=== PATIENT | male | born 1985 | race Caucasian/White ===

== ENCOUNTER 2024-04-14 13:00 | Emergency (ER) | payer MEDICARE, SELFPAY ==
--- NOTE | ~2024-04-14 | CT_ITS ---
EXAMINATION: CT ABDOMEN AND PELVIS WITHOUT CONTRAST CLINICAL INFORMATION: Left-sided flank pain COMPARISON: None available. TECHNIQUE: Multidetector volumetric imaging was performed from the superior aspect of the liver through the pubic symphysis. Sagittal and coronal reformatted images were obtained on the technologist's workstation. This CT examination was performed using dose optimization techniques as appropriate, variously including the following: *Automated exposure control *Adjustment of mA and/or kV according to patient size (this includes techniques or standardized protocols for targeted exams where dose is matched to indication/reason for exam; i.e. extremities or head) *Use of iterative reconstruction technique DLP: 306 mGy-cm FINDINGS: LUNG BASES: The visualized lung bases are unremarkable. LIVER, GALLBLADDER, AND BILIARY TREE: The liver is normal enlarged at 18 cm with normal attenuation and shape. No focal hepatic lesion or biliary ductal dilatation is present. The gallbladder is unremarkable with no evidence of radiopaque gallstones, gallbladder wall thickening, or obvious pericholecystic inflammatory changes. PANCREAS: Unremarkable. SPLEEN: Unremarkable. ADRENAL GLANDS: Unremarkable. KIDNEYS AND URETERS: The kidneys are normal in size, shape, and attenuation. Of 3 right-sided nonobstructing renal calculi are seen the largest measuring 4 mm and 840 Hounsfield units which is 5.5 cm from the posterior axillary line No hydronephrosis, hydroureter, or left-sided or ureteral calculi seen. No perinephric stranding. BLADDER: Unremarkable. GASTROINTESTINAL TRACT: There are colonic diverticula without diverticulitis The small and large bowel are otherwise unremarkable. The appendix is unremarkable. ABDOMINAL WALL: No significant hernia is appreciated. LYMPH NODES: Normal. VASCULAR: Unremarkable. PELVIC VISCERA: Mild BPH. Seminal vesicles normal. OSSEOUS STRUCTURES: Unremarkable. CT/CT abdomen pelvis wo IV con IMPRESSION: 1. A cause for the patient's left-sided flank pain has not been found. 2. Incidental note made of nonobstructing right-sided renal calculi, mild BPH and colonic diverticulosis without diverticulitis. Fleischner guidelines were followed. Electronically signed by: Michael Wilson MD 04/14/2024 06:33 PM [facility]
[2024-04-14 13:39] VITALS: BP 132/62; PULSE 84; RESP 18; TEMP 36.7; O2SAT 98; BMI 20.2
--- NOTE | 2024-04-14 13:46 | ED.BACK ---
HPI - Back Pain/Injury General Chief Complaint: Back Pain/Injury Stated Complaint: abd pain Time Seen by Provider: 04/14/24 14:03 Source: patient Mode of arrival: ambulatory Limitations: no limitations History of Present Illness ED Provider: [place] VALENTIN Narrative: Patient is a 38-year-old male presenting to the emergency department with complaint of left-sided flank pain for the past week. States pain is worse with movement and worse with getting up from a supine position. Denies any nausea, vomiting, fevers. Denies any dysuria, frequency, hematuria or other urinary symptoms. 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 Denies prior history of kidney stones. Has taken Tylenol with little relief. Pain radiates around side slightly. Denies radiation of pain to lower extremities. Denies saddle anesthesia or bowel/bladder incontinence. MD elicited complaint: back pain Onset (ago): week(s) Timing: constant Similar Symptoms Previously: No Quality: aching Location: left flank Radiation: abdomen Exacerbating factors: movement Relieving factors: none Associated symptoms: denies other symptoms Treatments prior to arrival: acetaminophen Work related injury: No Related Data Previous Rx's ?Medication ?Instructions ?Recorded cyclobenzaprine 10 mg tablet 10 mg PO TID PRN muscle spasm #10 04/14/24 tabs lidocaine 5 % topical patch 1 patch topical DAILY #15 ea 04/14/24 Allergies Allergy/AdvReac Type Severity Reaction Status Date / Time No Known Allergies Allergy Verified 04/14/24 13:44 Review of Systems Review of Systems: As per HPI. Yes all other systems are reviewed and are negative Constitutional: Constitutional: Reports as per HPI [facility] Social History Social History Advance Directives: No Advance Directives Information Provided: Yes Do you have a plan to hurt others: No Plan Physical Exam Vital Signs: Vital Signs: Last Vital Signs Temp 98 F 04/14/24 18:46 Pulse 63 04/14/24 18:46 Resp 19 04/14/24 18:46 BP 126/80 04/14/24 18:46 Pulse Ox 100 04/14/24 18:46 O2 Del Method Room Air 04/14/24 18:46 BMI result Body Mass Index 20.2 Vital signs have been reviewed and appear to be correct. Blood pressure normal. Heart rate normal. Respiratory rate normal. Temperature normal. Oxygen saturation normal. Const: General: cooperative, healthy appearing and no acute distress Orientation/consciousness: oriented to person, oriented to place, oriented to time and patient oriented x3 Limitations: no limitations HEENT: Head: Yes normocephalic and Yes atraumatic Ears: external ears normal General nose exam: Normal external nose present Face and sinus: Yes face symmetric Mouth: oropharynx normal and moist mucous membranes Throat: Yes uvula midline Eyes: Pupils: Equal, round and reactive pupils present Neck: Neck: Yes normal visual inspection and Yes supple Resp: Effort & Inspection: normal respiratory effort and able to speak in complete sentences Auscultation: clear to auscultation bilaterally Cardio: Rate: regular rate Rhythm: regular rhythm Heart sounds: S1 normal heart sound present and S2 normal heart sound present GI: Palpation (GI): Soft to palpation and nontender Auscultation: normoactive bowel sounds : General: Yes no CVA tenderness Back/Spine/Pelvis: Back: no CVA tenderness Thoracic/Lumbar Spine: thoracic and lumbar spine normal to inspection, thoraco-lumbar ROM normal, pain with thoraco-lumbar ROM, paraspinal muscle tenderness on the left in the lower thoracic, No thoracic spinal tenderness and No lumbar spinal tenderness Skin: General skin exam: elasticity normal and turgor normal Neuro: General: oriented to person, oriented to place, oriented to time, patient oriented x3, moves all extremities, no focal motor deficits and CN's II-XI intact bilaterally Cranial nerves: Yes Equal, round and reactive pupils present Cognition (Neuro): normal cognition Extrem: General: Yes full ROM, Yes no pedal edema and Yes no calf tenderness Psych: Mental Status: mental status grossly normal Affect: normal affect Thought process: Normal thought process present Course Course Course Narrative: This is a rapid medical exam performed by Anabela Sy PA-C. Patient is a 38-year-old male who comes in with left flank pain over the past several days. Pain over left mid flank radiates around anteriorly, becomes severe at times. Positive CVA tenderness on the left, no rash within this region, no other deformity. We will screen basic labs urinalysis and obtain a CT scan. Patient is hemodynamically stable and able to return to the weight room pending his full medical assessment. We will give a dose of Toradol. Medications Administered Discontinued Medications Generic Name Dose Route Start Last Admin Trade Name Freq PRN Reason Stop Dose Admin Ketorolac Tromethamine 15 mg 04/14/24 13:45 04/14/24 14:01 Ketorolac Tromethamine 15 Mg/Ml Vial IM 04/14/24 13:46 15 mg ONCE ONE Administration Medical Decision Making Medical Decision Making [facility] [place] Narrative: Patient is a 38-year-old male presenting to the emergency department with complaint of left-sided flank pain for the past week. On exam patient is awake, A+Ox3, VS WNL, afebrile, normal neurological exam without focal deficits, physical exam findings as above. Given reported symptoms and physical exam findings, initial differential includes renal/ureteral calculi, UTI/pyelonephritis, muscle strain. Labs notable for slight anemia, no leukocytosis. Urinalysis is without evidence of infection. CT notable for no evidence of obstructing calculi or hydronephrosis. My interpretation is in agreement with the radiologist's interpretation. Results discussed with patient and all questions answered. Will treat for muscle strain with cyclobenzaprine and topical lidocaine patches, also advised patient to take warm baths with Epsom salt. Follow up with PCP. Return precautions discussed at bedside. Patient verbalized understanding of and agreement with plan. Differential Diagnosis Differential Diagnoses: The differential diagnosis associated with the presentation includes As per [facility] [place] Admission/Observation Consideration of admission/observation: Escalation of care including admission/observation considered Patient would have been admitted to the hospital had their work up had any findings where hospital admission was appropriate and their clinical presentation warranted hospital admission. Lab Data [facility] [place] Lab Attestation statement: I reviewed the patient's lab results. as per [facility] 04/14/24 14:46 04/14/24 14:46 Labs: Lab Results 04/14/24 04/14/24 Range/Units 14:46 15:04 WBC 7.4 (4.8-10.8) X10*3/uL RBC 6.08 H (4.60-5.80) X10*6/uL Hgb 12.0 L (14.0-18.0) g/dl Hct 38.4 L (42.0-52.0) % MCV 63.2 L (80.0-98.0) fL MCH 19.7 L (27.0-33.0) pg MCHC 31.3 (31.0-36.0) g/dl RDW 18.4 H (11.0-16.0) % Plt Count 191 (160-400) X10*3/uL MPV Not Reportable Immature Gran % (Auto) Cancelled Neut % (Auto) Cancelled Lymph % (Auto) Cancelled Green % (Auto) Cancelled Eos % (Auto) Cancelled Baso % (Auto) Cancelled Lymph # (Auto) Cancelled Green # (Auto) Cancelled Eos # (Auto) Cancelled Baso # (Auto) Cancelled Abs Immat Gran (auto) Cancelled Absolute Neuts (auto) Cancelled Absolute Nucleated RBC 0.000 (0.0-0.012) X10*3/uL Nucleated RBC % (auto) 0.0 (0.0-0.2) /100WBC Neutrophils % (Manual) 62 (45-73) % Band Neutrophils % 1 L (3-5) % Lymphocytes % (Manual) 30 (20-40) % Atypical Lymphs % (Man) 2 (0-6) % Monocytes % (Manual) 5 (2-11) % Abs Neuts (Manual) 4.7 (2.0-8.3) X10*3/uL Lymphocytes # (Manual) 2.2 (1.2-4.9) X10*3/uL Atyp Lymphs # (Manual) 0.1 x10*3/uL Monocytes # (Manual) 0.4 (0.1-1.2) X10*3/uL Platelet Estimate NORMAL (NORMAL) Large Platelets PRESENT Plt Morphology Comment NOTED RBC Morphology NOTED Basophilic Stippling 1+ (0-2) /OIF Microcytosis 1+ (5-14) /OIF Target Cells 1+ (5-14) /OIF Tear Drop Cells 1+ (0-2) /OIF Acanthocytes (Spur) 1+ (0-2) /OIF Sodium 140 (135-145) mmol/L Potassium 4.0 (3.3-5.1) mmol/L Chloride 106 (96-108) mmol/L Carbon Dioxide 28 (22-29) mmol/L Anion Gap 10 L (12-20) BUN 11 (9-16) mg/dL Creatinine 0.88 (0.5-1.4) mg/dL Estim Creat Clear Calc 92.1 Estimated GFR > 60 Random Glucose 86 (60-115) mg/dL Calcium 9.2 (8.4-10.2) mg/dL Magnesium 2.2 (1.6-2.6) mg/dL Total Bilirubin 1.1 H (0.0-1.0) mg/dL AST 41 H (5-37) U/L ALT 19 (0-40) U/L Alkaline Phosphatase 54 (39-117) U/L Total Protein 7.4 (6.5-8.0) g/dL Albumin 4.5 (3.5-5.0) g/dL Urine Color Yellow Urine Appearance Clear Urine pH 7.0 (5.0-9.0) Ur Specific [place] 1.025 (1.005-1.025) Urine Protein Negative (Neg-Trace) mg/dL Urine Glucose (UA) Negative (Negative) mg/dL Urine Ketones Negative (Negative) mg/dL Urine Blood Negative (Negative) Urine Nitrite Negative (Negative) Ur Leukocyte Esterase Negative (Negative) Independent Interpretation I performed an independent interpretation of an: CT Scan Interpretation: CT notable for no evidence of obstructing calculi or hydronephrosis. Radiology Impression Discussion of test interpretation with radiology: I have reviewed the radiologist's reading. Radiologist Impression: CT/CT abdomen pelvis wo IV con IMPRESSION: 1. A cause for the patient's left-sided flank pain has not been found. 2. Incidental note made of nonobstructing right-sided renal calculi, mild BPH and colonic diverticulosis without diverticulitis. External Record Review External record reviewed: Inpatient record, Office record and Outpatient record Prescription Management I considered prescription management with: Pain Medication and Other Discharge Plan Discharge Clinical Impression: Strain of lumbar region Patient Disposition: Home, Self-Care Instructions: Muscle Strain (DC), Low Back Strain (ED), Acute Low Back Pain (ED) Additional Instructions: You were evaluated in the emergency department today for back pain. Your evaluation did not show signs of medical conditions requiring emergent intervention at this time. We recommended that you use ibuprofen or Tylenol per package directions every 6 hours as needed for pain. If necessary, you can alternate these medications so that you take one medication every 3 hours. For instance, at noon take ibuprofen, then at 3:00 p.m. take Tylenol, then at 6:00 p.m. take ibuprofen. You have been prescribed a muscle relaxer which you may take every 8 hours as needed for spasms. You have been prescribed 5% topical lidocaine patches which you can wear for up to 12 hours in a 24 hour period. Do not apply heat directly over the patches. Please schedule an appointment for follow-up with your primary care physician this week for further evaluation of your symptoms. Return to the emergency department if you experience worsening back pain, difficulty walking, fevers, numbness, tingling, incontinence, groin numbness or tingling, or any other concerning symptoms. Prescriptions: New cyclobenzaprine 10 mg tablet 10 mg PO TID PRN (Reason: muscle spasm) Qty: 10 0RF lidocaine 5 % adhesive patch,medicated 1 patch topical DAILY Qty: 15 0RF Rx Instructions: leave on most painful area for up to 12 hrs Print Language: Kiswahili
[2024-04-14] MEDS: Ketorolac Tromethamine 15 MG/ML VIAL IM (14:01)
[2024-04-14 14:54] LABS: Hematocrit 38.4 % (42.0-52.0); Mean Corpuscular HGB Conc 31.3 g/dl (31.0-36.0); Mean Corpuscular Hemoglobin 19.7 pg (27.0-33.0); Mean Corpuscular Volume 63.2 fL (80.0-98.0); Platelet Count 191 X10*3/uL (160-400); Red Blood Count 6.08 X10*6/uL (4.60-5.80); Red Cell Distribution Width 18.4 % (11.0-16.0)
[2024-04-14 14:55] LABS: WBC ABN SCTR FOR CBC 1
[2024-04-14 15:07] LABS: Alanine Aminotransferase 19 U/L (0-40); Albumin Level 4.5 g/dL (3.5-5.0); Alkaline Phosphatase 54 U/L (39-117); Anion Gap 10 (12-20); Aspartate Amino Transferase 41 U/L (5-37); Bilirubin Total 1.1 mg/dL (0.0-1.0); Blood Urea Nitrogen 11 mg/dL (9-16); Calcium 9.2 mg/dL (8.4-10.2); Carbon Dioxide 28 mmol/L (22-29); Chloride 106 mmol/L (96-108); Creatinine Clr Calc Pharmacy 92.1; Estimated Glomerular Filt Rate > 60; Glucose Random 86 mg/dL (60-115); Magnesium 2.2 mg/dL (1.6-2.6); Sodium 140 mmol/L (135-145); Total Protein 7.4 g/dL (6.5-8.0)
[2024-04-14 15:14] LABS: Appearance Urine Clear; Color Urine Yellow; Glucose Urine UA Negative (Negative); Leukocyte Esterase Urine Negative (Negative); Nitrite Urine Negative (Negative); Specific Gravity - Urine 1.025 (1.005-1.025); Urine Blood Negative (Negative); Urine Ketones Negative (Negative); Urine Protein Negative (Neg-Trace)
[2024-04-14 15:15] LABS: Atypical Lymphs Percent Manual 2 % (0-6); Band Neutrophils Percent 1 % (3-5); Lymphocytes Percent Manual 30 % (20-40); Microcytosis 1+ (5-14) /OIF; Monocytes Percent Manual 5 % (2-11); Neutrophils Percent Manual 62 % (45-73); RBC Morphology NOTED
[2024-04-14 15:20] LABS: Acanthocytes 1+ (0-2) /OIF; Basophilic Stippling 1+ (0-2) /OIF; Target Cells 1+ (5-14) /OIF; Tear Drop Cells 1+ (0-2) /OIF
[2024-04-14 15:21] LABS: Large Platelet PRESENT; Platelet Estimate NORMAL (NORMAL); Platelet Morphology Comment NOTED
[2024-04-14 15:22] VITALS: BP 134/66; PULSE 72; RESP 19; TEMP 36.9; O2SAT 98
[2024-04-14 15:22] LABS: Atypical Lymph Absolute Manual 0.1 x10*3/uL; Lymphocytes Absolute Manual 2.2 X10*3/uL (1.2-4.9); Monocytes Absolute Manual 0.4 X10*3/uL (0.1-1.2); Neutrophils Absolute Manual 4.7 X10*3/uL (2.0-8.3); White Blood Count 7.4 X10*3/uL (4.8-10.8)
[2024-04-14 18:46] VITALS: BP 126/80; PULSE 63; RESP 19; TEMP 36.6; O2SAT 100
[2024-04-14 18:58] VITALS: BP 126/80; PULSE 63; RESP 19; TEMP 36.6; O2SAT 100
== END 2024-04-14 18:58 | disposition home or self-care (01) ==
PROVIDERS: Physician Assistant Medical; Emergency Provider Emergency Medicine
DX: S39.012A Strain of muscle, fascia and tendon of lower back, initial encounter (principal); R10.2 Pelvic and perineal pain; X58.XXXA Exposure to other specified factors, initial encounter; Y93.89 Activity, other specified; Y92.89 Other specified places as the place of occurrence of the external cause; Y99.8 Other external cause status; Z79.899 Other long term (current) drug therapy
CPT/HCPCS: 36415; 74176; 80053; 81003; 83735; 85007; 85027; 96372; 99283; 99284; J1885

== ENCOUNTER 2024-11-11 12:58 | Outpatient (REF) | payer MEDICARE, OTHER, SELFPAY ==
[2024-11-11 14:53] LABS: Appearance Urine Clear; Glucose Urine UA Negative (Negative); PH 5.5 (5.0-9.0); Specific Gravity - Urine >= 1.030 (1.005-1.025); UMIC TRIGGER UACC YES
[2024-11-11 15:14] LABS: Hematocrit 36.7 % (42.0-52.0); Hemoglobin 11.0 g/dl (14.0-18.0); Imm Gran Abs Auto 0.05 X10*3/uL (0.00-0.03); Imm Gran Pct Auto 0.5 % (0.0-0.4); Lymphocytes Absolute Auto 2.8 X10*3/uL (1.2-4.9); MANUAL DIFF FLAG SCAN; Mean Corpuscular HGB Conc 30.0 g/dl (31.0-36.0); Mean Corpuscular Hemoglobin 19.2 pg (27.0-33.0); NRBC Abs Auto 0.000 X10*3/uL (0.0-0.012); NRBC Pct Auto 0.0 /100WBC (0.0-0.2); PLT CLUMP 1; Red Blood Count 5.74 X10*6/uL (4.60-5.80); SCAN SMEAR FLAG 1
[2024-11-11 15:16] LABS: Mean Corpuscular Volume 63.9 fL (80.0-98.0); White Blood Count 9.7 X10*3/uL (4.8-10.8)
[2024-11-11 15:38] LABS: Platelet Count 244 X10*3/uL (160-400)
[2024-11-11 17:56] LABS: CT PCR Urine NOT DETECTED (Not Detect.); NG PCR Urine NOT DETECTED (Not Detect.)
[2024-11-12 08:39] LABS: Syphilis Screen Reactive (Nonreactive)
[2024-11-20 15:36] LABS: T.Pallidum Particle Agg Test Reactive (Nonreactive)
== END 2024-11-11 12:59 | disposition home or self-care (01) ==
LOC: HO.LAB 12:58
DX: Z76.89 Persons encountering health services in other specified circumstances (principal); M25.512 Pain in left shoulder; G89.29 Other chronic pain; H53.8 Other visual disturbances; R10.13 Epigastric pain; R51.9 Headache, unspecified; Z13.31 Encounter for screening for depression; Z13.39 Encounter for screening examination for other mental health and behavioral disorders
CPT/HCPCS: 36415; 81001; 85025; 86592; 86780; 87491; 87591; 96127; 99202

== ENCOUNTER 2024-11-11 12:58 | Outpatient (AMB) | payer MEDICARE, OTHER, SELFPAY ==
[2024-11-11 13:00] VITALS: BP 132/84; PULSE 96; RESP 18; TEMP 36.2; O2SAT 98; BMI 20.4
--- NOTE | 2024-11-11 13:00 | MHC.PC.OV ---
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 Allergies No Known Allergies Allergy (Verified 11/11/24 13:13) Medication List - Last Reconciled 11/11/24 by BEAN Wagner No Known Home Meds Tobacco use date assessed: 11/11/24 Dental Screening Dental Screen Date: 11/11/24 Did you have a dental visit in the last 12 months?: No Did you have a dental problem in the last 6 months where you did not have access to dental care?: No Was dental information given to patient?: Patient declined 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 The musculoskeletal pain has been persistent for almost a year, primarily affecting the shoulder and neck region, with episodes of severe pain leading to emergency room visits. Initial investigations, including X-rays and blood work, did not reveal any specific cause, and the pain persists, exacerbated by certain positions and activities. The patient has sought residential care officer, which provided temporary relief, and is considering physical therapy for more sustained improvement. The patient has a history of asthma, which required inhaler use approximately ten years ago, but he no longer uses it. He also reports a diagnosis of anemia, though details are sparse. Additionally, the patient experiences intermittent abdominal pain, occurring about once a week, and finds some relief with marijuana use. He denies any specific food triggers and reports the pain is generally epigastric in location. The patient occasionally experiences mild headaches and blurred vision, with a history of a scratched cornea from an eye injury ten years ago. He has not had a recent eye examination. A past medical history of kidney stones was noted, though it was not the primary concern during this visit. 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 1. Little interest or pleasure in doing things: not at all 2. Feeling down, depressed, or hopeless: not at all 3. Trouble falling or staying asleep, or sleeping too much: not at all 4. Feeling tired or having little energy: not at all 5. Poor appetite or overeating: not at all 6. Feeling bad about yourself - or that you are a failure or have let yourself or your family down: not at all 7. Trouble concentrating on things, such as reading the newspaper or watching television: not at all 8. Moving or speaking so slowly that other people could have noticed. Or the opposite - being so fidgety or restless that you have been moving around a lot more than usual: not at all 9. Thoughts that you would be better off or of hurting yourself in some way: not at all Total score: 0 Depression Screening Interpretation: Negative Depression Screening Done: Yes 82998 - PHQ-9 Billing: Yes Source: Developed by Drs. Len Payne, Malena Handy, Andreas Mims and colleagues, with an educational celina from [employer]. Thrive Questionnaire Date Thrive assessed: 11/11/24 I am a: Patient What is your living situation today?: I have a place to live, but I am worried about losing it in the future Within the past 12 months, did the food you bought not last and you didn't have the money to get more?: Often true Within the past 12 months, did you worry whether your food would run out before you got money to buy more?: Sometimes True Do you have trouble paying for medicines?: No Do you have trouble getting transportation to medical appointments?: No Do you have trouble paying your heating and electricity bill?: No Do you have trouble taking care of your child, family member or friend?: No Do you have trouble with day-to-day activities such as bathing, preparing meals, shopping, managing finances, etc.?: No Are you currently unemployed and looking for a job?: No Are you interested in more education?: No Please select the resources that you would like help with: None Currently or been in a relationship where the following occur: No concerns reported THRIVE Score: 3 AUDIT C Alcohol Use Questionnaire (AUDIT-C) 1. How often do you have a drink containing alcohol?: Monthly or less 2. How many drinks containing alcohol do you have on a typical day when you are drinking?: 1 or 2 3. How often do you have six or more drinks on one occasion?: Never Total Score: 1 LIZA-7 AMB Questionnaire LIZA-7 Date LIZA - 7 assessed: 11/11/24 Feeling nervous, anxious, or on edge: 0 = Not at all Not being able to stop or control worryin = Not at all Worrying too much about different things: 0 = Not at all Trouble relaxin = Not at all Being so restless that it is hard to sit still: 0 = Not at all Becoming easily annoyed or irritable: 0 = Not at all Feeling afraid as if something awful might happen: 0 = Not at all Total LIZA-7 score (0-4 normal; 5-9 mild; 10-14 moderate; 15-21 severe): 0 Source: Developed by Drs. Len Payne, Malena Handy, Andreas Mims and colleagues, with an educational celina from [employer] LIZA-7 Assessment Billing LIZA-7 Assessment Tool: LIZA-7 Assessment 29869 Review of Systems Const Reports headache(s) (on and off-attributed to not drinking enough fluids) Eyes Reports blurry vision and Denies loss of vision ENT Denies vertigo, Denies dizziness, Reports headache(s) (on and off-attributed to not drinking enough fluids) and Denies sore throat Card Denies chest pain, Denies leg edema and Denies lightheadedness Resp Denies cough, Denies hemoptysis and Denies wheezing GI Reports abdominal pain (infrequent epigastric pain), Denies melena, Denies constipation, Denies diarrhea and Denies vomiting Denies dysuria, Denies urinary frequency and Denies urinary urgency Musc Reports arthralgias (left shoulder), Denies joint swelling, Denies numbness and Denies tingling Skin/Breast Denies lesions, Denies rash and Denies skin swelling Neuro Denies Abnormal speech present, Denies behavioral changes, Denies vertigo, Denies dizziness, Reports headache(s) (on and off-attributed to not drinking enough fluids), Denies loss of vision, Denies memory loss, Denies numbness and Denies tingling Psych Denies anxiety, Denies behavioral changes, Denies depression, Denies memory loss and Denies panic attacks Juan Francisco/Lymph Denies easy bleeding and Denies easy bruising Aller/Immun Denies wheezing Physical exam (Primary Care) Vital Signs: Last Vital Signs Temp 97.1 F 11/11/24 13:00 Pulse 96 11/11/24 13:00 Resp 18 11/11/24 13:00 BP 132/84 11/11/24 13:00 Pulse Ox 98 11/11/24 13:00 Oxygen Delivery Method Room Air 11/11/24 13:00 BMI result Body Mass Index 20.4 Tobacco/Smoking Status: Tobacco use Status Tobacco use date assessed 11/11/24 11/11/24 13:07 Patient Tobacco Use Status Never used Tobacco 11/11/24 13:07 e-Cigarette/Vaping Use Never Used 11/11/24 13:07 PHQ-9: PHQ-9 Score PHQ-9: Total score 0 11/11/24 13:21 Depression Screening Interpretation: Negative Thrive Assessment: Date of Thrive Assessment Date Thrive assessed 11/11/24 11/11/24 13:07 Currently or been in a relationship where the following occur: No concerns reported Const General: healthy appearing, no acute distress, alert and awake Nutritional Appearance: well nourished Orientation/consciousness: oriented to person, oriented to place and oriented to time HENMT Ears: TM's normal bilaterally General nose exam: Normal nasal mucous membranes and turbinates present Eyes Conjunctivae: conjunctivae normal Sclerae: sclerae normal Pupils: Equal, round and reactive pupils present Neck Neck: Yes no lymphadenopathy and Yes no JVD Thyroid: Thyroid normal Carotids: no bruits Resp Effort & Inspection: normal respiratory effort and not tachypneic Auscultation: no crackles, no rales, no rhonchi and no wheezes Cardio Rate: regular rate Rhythm: regular rhythm Heart sounds: no murmurs and normal S1 and S2 GI Palpation (GI): Soft to palpation, nontender, no hepatomegaly and no splenomegaly Auscultation: normal bowel sounds General: Yes no CVA tenderness Back/Spine/Pelvis Back: no CVA tenderness Cervical Spine: No Cervical spine tenderness Skin General skin exam: no rashes or lesions noted and dry skin Neuro General: oriented to person, oriented to place and oriented to time Cranial nerves: Yes Equal, round and reactive pupils present Speech: No Abnormal speech present Gait exam (Neuro): Normal gait present Motor exam (neuro): no tremor noted Extrem Right upper extremity: full ROM Left upper extremity: full ROM and shoulder/upper arm Details: tenderness (trapezium muscle) and normal ROM; no swelling, no crepitus and no deformity Right lower extremity: full ROM; no edema Left lower extremity: full ROM; no edema Psych Mental Status: mental status grossly normal Speech and movement: Normal speech and movement present Affect: normal affect Attitude: cooperative Thought process: Normal thought process present Coding Level of Care Code New Pt Level 3 (56906) Diagnoses Chronic left shoulder pain M25.512; G89.29 Chronicity: chronic Blurry vision H53.8 Epigastric abdominal pain R10.13 Generalized headaches R51.9 Additional Codes LIZA-7 Assessment Billing - LIZA-7 Assessment Tool: LIZA-7 Assessment 91391 ([id number]) PHQ-9 - 73251 - PHQ-9 Billing: Yes ([id number]) Time Spent (min) 37 Assessment & Plan Assessment & Plan (1) Left shoulder pain: Code(s): M25.512 - Pain in left shoulder Category: Medical Qualifiers: Chronicity: chronic Qualified Code(s): M25.512 - Pain in left shoulder; G89.29 - Other chronic pain Plan: Ongoing pain, reports waking up with the pain and thought maybe he slept wrong. The pain has not gone away since. He was evaluated in the emergency room with no significant findings. Reports having pain down his arm before, which resolved after he went to the chiropractor, he was also trying to see a neurologist, but was told that he needed a referral. Exam: The patient has mild pain over his trapezium muscle, with no limitation or weakness. Appears to be muscular in general. Cyclobenzaprine 10 mg at bedtime refilled. PT evaluation ordered (2) Blurry vision: Code(s): H53.8 - Other visual disturbances Category: Medical Plan: epic cupid analyst referral placed (3) Epigastric abdominal pain: Code(s): R10.13 - Epigastric pain Category: Medical Plan: Infrequent epigastric pain. Educated the patient on the foods avoid. Will continue monitor (4) Generalized headaches: Code(s): R51.9 - Headache, unspecified Category: Medical Plan: Encouraged adequate fluids hydration Plan Establishing care. Labs ordered, return in 9 weeks for physical Orders: Orders Lipid Panel 11/11/24 Z76.89 - Persons encountering health services in other specified circumstances Vitamin D 25-OH Total 11/11/24 Z76.89 - Persons encountering health services in other specified circumstances HIV Ab/Ag 11/11/24 Z76. - Persons encountering health services in other specified circumstances Syphilis Screen 11/11/24 Z76.89 - Persons encountering health services in other specified circumstances CT NG by PCR Urine 11/11/24 Z76. - Persons encountering health services in other specified circumstances Complete Blood Count Auto Diff 11/11/24 Z76.89 - Persons encountering health services in other specified circumstances Comprehensive [place]. Panel Fast 11/11/24 Z76.89 - Persons encountering health services in other specified circumstances TSH reflex Free T4 11/11/24 Z. - Persons encountering health services in other specified circumstances UA CC w/rflx Micro + Cult 11/11/24 Z. - Persons encountering health services in other specified circumstances PT Evaluation and Treatment Today G89.29 - Other chronic pain, M25.512 - Pain in left shoulder Referrals Ophthalmology Referral H53.8 - Other visual disturbances Medications: New cyclobenzaprine 10 mg PO BEDTIME PRN 30 tabs 2RF muscle spasm Discontinued cyclobenzaprine Discontinued Reason: Patient no longer taking 10 mg PO TID PRN 10 tabs 0RF muscle spasm lidocaine 5% leave on most painful area for up to 12 hrs Discontinued Reason: Patient no longer taking 1 patch topical DAILY 15 ea 0RF
--- OUTSIDE RECORDS SUMMARY | 2024-11-11 13:32 | XMS_ITS | Clinical Summary ---
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 Name Role Phone Physician, No Pcp Primary Care Provider Unavaila ble Allergies No known active allergies Social History Tobacco Use Types Packs/Day Years Used Date Smoking Tobacco: Never Assessed Sex and Gender Information Value Date Recorded Sex Assigned at Male 07/09/2024 8:10 AM EST Legal Sex Male 2:55 AM EST Gender Identity Male 07/09/2024 8:10 AM EST Sexual Orientation Straight 07/09/2024 8: 10 AM EST Last Filed Vital Signs Vital Sign Reading Time Taken Comments Blood Pressure 117/75 07/09/2024 7:36 AM EST Pulse 56 07/09/2024 7:36 AM EST Temperature 36.6 C (97.9 F) 07/09/2024 7:36 AM EST Respiratory Rate 20 07/09/2024 7:36 AM EST Oxygen Saturation 98% 07/09/2024 7:36 AM EST Inhaled Oxygen Concentration - - Weight 56.7 kg (125 lb) 07/09/2024 3:01 AM EST Height 165.1 cm (5' 5 ) 07/09/2024 3:01 AM EST Body Mass Index 20.8 07/09/2024 3:01 AM EST Plan of Treatment Health Maintenance Due Date Last Done Comments DTaP,Tdap,and Td Vaccines (1 - Tdap) 2005 Hepatitis B Vaccines (1 of 3 - 19+ 3-dose series) 2005 COVID-19 Vaccine ( - 2023-2 5 season) 2024 Cholesterol Screening (Lipid Panel) 07/09/2024 Depression Screening 07/09/2024 HIV Screening 07/09/2024 Hepatitis C Screening 07/09/2024 Social Influencers of Health Screening 07/09/2024 Influenza Vaccine (Season Ended) 2025 HIB Vaccines Aged Out No longer eligi ble based on patient's age to complete this topic HPV Vaccines Aged Out No longer eligi ble based on patient's age to complete this topic Hepatitis A Vaccines Aged Out No long er eligible based on patient's age to complete this topic IPV Vaccines Aged Out No longer eligi ble based on patient's age to complete this topic MMR Vaccines Aged Out No longer eligi ble based on patient's age to complete this topic Meningococcal ACWY Vaccine Aged Out N o longer eligible based on patient's age to complete this topic Meningococcal B Vaccine Aged Out No l onger eligible based on patient's age to complete this topic Pneumococcal Vaccine: Pediat rics (0 to 5 Years) and At-Risk Patients (6 to 64 Years) Aged Out No longer eligible b ased on patient's age to complete this topic RSV Immunization Patients Un carlos 20 months Aged Out No longer eligible b ased on patient's age to complete this topic Varicella Vaccines Aged Out No longer eligible based on patient's age to complete this topic Insurance [facility] [address] [place] [address] Care Teams Grocery Store Manager Relationship Specialty Start Date End Date Physician, No Pcp PCP - General 07/09/24
== END 2024-11-11 13:49 | disposition home or self-care (01) ==
LOC: HO.HMCH 12:59
DX: M25.512 Pain in left shoulder (principal); G89.29 Other chronic pain; H53.8 Other visual disturbances; R10.13 Epigastric pain; R51.9 Headache, unspecified

== ENCOUNTER 2025-01-13 14:56 | Outpatient (AMB) | payer MEDICARE, SELFPAY ==
[2025-01-13 15:09] VITALS: BP 146/70; PULSE 111; RESP 18; TEMP 36.3; O2SAT 98; BMI 21.8
--- NOTE | 2025-01-13 15:09 | MHC.PC.OV ---
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: No Accompanied by: Self / Same As Patient Allergies No Known Allergies Allergy (Verified 01/13/25 15:17) Medication List - Last Reconciled 01/13/25 by BEAN Wagner No Known Home Meds Tobacco use date assessed: 01/13/25 Dental Screening Dental Screen Date: 01/13/25 Did you have a dental visit in the last 12 months?: No Did you have a dental problem in the last 6 months where you did not have access to dental care?: No Was dental information given to patient?: No HPI 9 weeks HPI Details This is presenting for an annual physical Dentist:Needs to make an appt Eye: He was referred to an manufacturing engineering manager but did not confirm appointment when they called him. He was given the number to reach out to them; he was complaining of blurry vision on his prior visit. Snellen: Right: Left: Corrected vision: no STI screening: completed Colonoscopy: n/a Pap Smer:n/a PHQ-9: Flu: He does not taken this regularly COVID: x2 Tdap: Reports that he is not sure when he had this, he will hold off for now. Diet: regular Exercise:Reports doing martial arts; verbalized that he is active. The patient is a 39-year-old male presenting with iron deficiency anemia and slightly elevated liver enzymes. The anemia was identified through blood work, and it is suspected to be due to iron deficiency. The patient has a history of being prescribed iron supplements, which were not effective, and he is advised to consume iron-rich foods like spinach. The patient also reports slightly elevated liver enzymes, which were noted during routine blood work. He consumes alcohol very rarely and does not use Tylenol frequently, which are common causes of liver enzyme elevation. The patient has a history of blurred vision and was scheduled for an eye doctor appointment, which he could not confirm. He is advised to reschedule the appointment to address this issue. The patient has a history of kidney stones, which were identified through imaging in April. He is advised to maintain hydration to prevent recurrence. 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 1. Little interest or pleasure in doing things: not at all 2. Feeling down, depressed, or hopeless: not at all 3. Trouble falling or staying asleep, or sleeping too much: not at all 4. Feeling tired or having little energy: not at all 5. Poor appetite or overeating: not at all 6. Feeling bad about yourself - or that you are a failure or have let yourself or your family down: not at all 7. Trouble concentrating on things, such as reading the newspaper or watching television: not at all 8. Moving or speaking so slowly that other people could have noticed. Or the opposite - being so fidgety or restless that you have been moving around a lot more than usual: not at all 9. Thoughts that you would be better off or of hurting yourself in some way: not at all Total score: 0 Depression Screening Interpretation: Negative Depression Screening Done: Yes Source: Developed by Drs. Len Payne, Malena Handy, Andreas Mims and colleagues, with an educational celina from [employer]. Thrive Questionnaire Date Thrive assessed: 01/13/25 I am a: Patient What is your living situation today?: I have a place to live, but I am worried about losing it in the future Within the past 12 months, did the food you bought not last and you didn't have the money to get more?: Often true Within the past 12 months, did you worry whether your food would run out before you got money to buy more?: Sometimes True Do you have trouble paying for medicines?: No Do you have trouble getting transportation to medical appointments?: No Do you have trouble paying your heating and electricity bill?: No Do you have trouble taking care of your child, family member or friend?: No Do you have trouble with day-to-day activities such as bathing, preparing meals, shopping, managing finances, etc.?: No Are you currently unemployed and looking for a job?: No Are you interested in more education?: No Please select the resources that you would like help with: None Currently or been in a relationship where the following occur: No concerns reported THRIVE Score: 3 AUDIT C Alcohol Use Questionnaire (AUDIT-C) 1. How often do you have a drink containing alcohol?: Monthly or less 2. How many drinks containing alcohol do you have on a typical day when you are drinking?: 1 or 2 3. How often do you have six or more drinks on one occasion?: Never Total Score: 1 LIZA-7 AMB Questionnaire LIZA-7 Date LIZA - 7 assessed: 01/13/25 Source: Developed by Drs. Len Payne, Malena Handy, Andreas Mims and colleagues, with an educational celina from [employer]. Review of Systems Const Denies headache(s) Eyes Reports blurry vision and Denies loss of vision ENT Denies vertigo, Denies dizziness, Denies headache(s) and Denies sore throat Card Denies chest pain, Denies leg edema and Denies lightheadedness Resp Denies cough, Denies hemoptysis and Denies wheezing GI Denies abdominal pain, Denies melena, Denies constipation, Denies diarrhea and Denies vomiting Denies dysuria, Denies urinary frequency and Denies urinary urgency Musc Denies arthralgias, Denies joint swelling, Denies numbness and Denies tingling Neuro Denies Abnormal speech present, Denies behavioral changes, Denies vertigo, Denies dizziness, Denies headache(s), Denies loss of vision, Denies memory loss, Denies numbness and Denies tingling Psych Denies anxiety, Denies behavioral changes, Denies depression, Denies memory loss and Denies panic attacks Juan Francisco/Lymph Denies easy bleeding and Denies easy bruising Aller/Immun Denies wheezing Physical exam (Primary Care) Vital Signs: Last Vital Signs Temp 97.3 F 01/13/25 15:09 Pulse 111 H 01/13/25 15:09 Resp 18 01/13/25 15:09 BP 134/82 01/13/25 15:26 Pulse Ox 98 01/13/25 15:09 Oxygen Delivery Method Room Air 01/13/25 15:09 BMI result Body Mass Index 21.8 Tobacco/Smoking Status: Tobacco use Status Tobacco use date assessed 01/13/25 01/13/25 15:15 Patient Tobacco Use Status Never used Tobacco 01/13/25 15:15 e-Cigarette/Vaping Use Never Used 01/13/25 15:15 PHQ-9: PHQ-9 Score PHQ-9: Total score 0 01/13/25 15:27 Depression Screening Interpretation: Negative Thrive Assessment: Date of Thrive Assessment Date Thrive assessed 01/13/25 01/13/25 15:15 Currently or been in a relationship where the following occur: No concerns reported Const General: healthy appearing, no acute distress, alert and awake Nutritional Appearance: well nourished Orientation/consciousness: oriented to person, oriented to place and oriented to time HENMT Ears: TM's normal bilaterally General nose exam: Normal nasal mucous membranes and turbinates present Eyes Conjunctivae: conjunctivae normal Sclerae: sclerae normal Pupils: Equal, round and reactive pupils present Neck Neck: Yes no lymphadenopathy and Yes no JVD Thyroid: Thyroid normal Carotids: no bruits Resp Effort & Inspection: normal respiratory effort and not tachypneic Auscultation: no crackles, no rales, no rhonchi and no wheezes Cardio Rate: regular rate Rhythm: regular rhythm Heart sounds: no murmurs and normal S1 and S2 GI Palpation (GI): Soft to palpation, nontender, no hepatomegaly and no splenomegaly Auscultation: normal bowel sounds General: Yes no CVA tenderness Back/Spine/Pelvis Back: no CVA tenderness Skin General skin exam: no rashes or lesions noted and dry skin Neuro General: oriented to person, oriented to place, oriented to time and CN's II-XI intact bilaterally Cranial nerves: Yes Equal, round and reactive pupils present Speech: No Abnormal speech present Gait exam (Neuro): Normal gait present Motor exam (neuro): no tremor noted Deep tendon reflexes (DTR's): Right triceps reflex intensity grade: 2+, Left triceps reflex intensity grade: 2+, Rt Biceps (C5, C6): 2+, Left biceps reflex intensity grade: 2+, Right brachioradialis reflex intensity grade: 2+, Left brachioradialis reflex intensity grade: 2+, Right patellar reflex intensity grade: 2+ and Left patellar reflex intensity grade: 2+ Extrem Right upper extremity: full ROM Left upper extremity: full ROM Right lower extremity: full ROM; no edema Left lower extremity: full ROM; no edema Psych Mental Status: mental status grossly normal Speech and movement: Normal speech and movement present Affect: normal affect Attitude: cooperative Thought process: Normal thought process present Coding Level of Care Code Est Pt Prev Care [id number]) Diagnoses Annual physical exam Z00.00 Blurry vision H53.8 Elevated AST (SGOT) R74.01 Anemia, unspecified type D64.9 Anemia type: unspecified type Chronic left shoulder pain M25.512; G89.29 Chronicity: chronic Generalized headaches R51.9 Epigastric abdominal pain R10.13 Syphilis A53.9 Time Spent (min) 39 Assessment & Plan Assessment & Plan (1) Annual physical exam: Code(s): Z00.00 - Encounter for general adult medical examination without abnormal findings Category: Medical Plan: Preventative guidelines and recent labs reviewed with the patient. The patient was given a number for the manufacturing engineering manager to call to confirm appointment. (2) Blurry vision: Code(s): H53.8 - Other visual disturbances Category: Medical Plan: Awaiting appointment (3) Elevated AST (SGOT): Code(s): R74.01 - Elevation of levels of liver transaminase levels Category: Medical Plan: AST slightly elevated at 41-limit alcohol/medication containing acetaminophen or Tylenol/high fat foods. We will recheck CMP in 4 months (4) Anemia: Code(s): D64.9 - Anemia, unspecified Category: Medical Qualifiers: Anemia type: unspecified type Qualified Code(s): D64.9 - Anemia, unspecified Plan: H&H 1136.7, MCV 63.9, MCH 19.2-indicating a microcytic hypochromic anemia. Encouraged the patient to increase iron in his diet. Reports that iron tablets has not worked for him in the past. We will continue to monitor CBC. (5) Left shoulder pain: Code(s): M25.512 - Pain in left shoulder Category: Medical Qualifiers: Chronicity: chronic Qualified Code(s): M25.512 - Pain in left shoulder; G89.29 - Other chronic pain Plan: Reports that showed the has been feeling much better and stronger. Denies pain (6) Generalized headaches: Code(s): R51.9 - Headache, unspecified Category: Medical Plan: On and off, but has improved some since he started increase fluids. Discussed with the patient that his headaches might be related to his blurry vision as well. (7) Epigastric abdominal pain: Code(s): R10.13 - Epigastric pain Category: Medical Plan: Patient denies abdominal pain. We will continue to monitor (8) Syphilis: Code(s): A53.9 - Syphilis, unspecified Category: Medical Plan: The patient RPR Quant reactive 1:1 with is the lowest reaction representing a treated, latent form of syphilis. Orders: Orders Comprehensive [place]. Panel Fast 4 Months D64.9 - Anemia, unspecified, H53.8 - Other visual disturbances, R10.13 - Epigastric pain, R74.01 - Elevation of levels of liver transaminase levels UA CC w/rflx Micro + Cult 4 Months D64.9 - Anemia, unspecified, H53.8 - Other visual disturbances, R10.13 - Epigastric pain, R74.01 - Elevation of levels of liver transaminase levels Complete Blood Count Auto Diff 4 Months D64.9 - Anemia, unspecified, H53.8 - Other visual disturbances, R10.13 - Epigastric pain, R74.01 - Elevation of levels of liver transaminase levels TSH reflex Free T4 4 Months D64.9 - Anemia, unspecified, H53.8 - Other visual disturbances, R10.13 - Epigastric pain, R74.01 - Elevation of levels of liver transaminase levels
[2025-01-13 15:26] VITALS: BP 134/82
--- OUTSIDE RECORDS SUMMARY | 2025-01-13 17:10 | XMS_ITS | Clinical Summary ---
Author Organization [facility] Address [address] [place] [address] Phone Care Team Providers Care Fisher [facility] Name Role Phone Physician, No Pcp Primary [...] Vaccine ( - 2023-2 5 season) 2024 Depression Screening 05/13/2024 Cholesterol Screening (Lipid Panel) 07/09/2024 HIV Screening 07/09/2024 Hepatitis C Screening 07/09/2024 Social Influencers of Health Screening 07/09/2024 Influenza Vaccine (#1) 2025 HIB Vaccines Aged Out No longer [...] 5 Years) and At-Risk Patients (6 to 49 Years) Aged Out No longer eligible b ased on patient's age to complete this topic RSV Immunization Patients Un carlos 20 months Aged Out No longer eligible b ased on patient's age to complete this topic Varicella Vaccines Aged Out No longer eligible based on patient's age to complete this topic Insurance [facility] [address] [place] [address] Care Teams Fisher [facility] Relationship Specialty Start Date End Date Physician, No Pcp PCP - General 07/09/24
== END 2025-01-13 15:41 | disposition home or self-care (01) ==
LOC: HO.HMCH 14:56
DX: H53.8 Other visual disturbances (principal); R74.01 Elevation of levels of liver transaminase levels; D64.9 Anemia, unspecified; M25.512 Pain in left shoulder; G89.29 Other chronic pain; R51.9 Headache, unspecified; R10.13 Epigastric pain; A53.9 Syphilis, unspecified

== ENCOUNTER → 2025-01-13 14:56 | Outpatient (BNVA) | payer MEDICARE, SELFPAY | DX: Z00.00 Encounter for general adult medical examination without abnormal findings (principal); D64.9 Anemia, unspecified; R79.89 Other specified abnormal findings of blood chemistry; H53.8 Other visual disturbances; R74.01 Elevation of levels of liver transaminase levels; M25.512 Pain in left shoulder; G89.29 Other chronic pain; R51.9 Headache, unspecified; R10.13 Epigastric pain; A53.0 Latent syphilis, unspecified as early or late; Z87.442 Personal history of urinary calculi | CPT/HCPCS: 96127; 99212 ==